=== PATIENT | female | born 1990 | race Caucasian/White ===

== ENCOUNTER 2022-08-05 04:42 | Emergency (ER) | payer BC, SELFPAY ==
--- NOTE | ~2022-08-05 | CT_ITS ---
CT of the Abdomen and Pelvis: Indication: Abdominal pain Technique: 2.5 mm axial scans were obtained through the abdomen and pelvis following intravenous adm inistration of 100 cc of Omnipaque 350. Dose reduction technique was used on this scan by utilizing a utomated exposure control and iterative reconstruction technique. The dose-length product (DLP) was 1 623.63 mGy-cm. Findings: Scans through the lung bases are unremarkable. Cholecystectomy clips are present. There is a 1.1 x 0.5 cm irregular hypodense area in the right hepa tic lobe (axial image 331), nonspecific. The spleen, pancreas, adrenals and kidneys are within normal limits. No evidence of aortic aneurysm. No lymphadenopathy. No bowel obstruction or bowel wall thickening. There is no evidence to suggest acute appendicitis. Images through the pelvis were performed. Urinary bladder unremarkable. No adnexal mass evident. No a scites. Impression: 1.1 x 0.5 cm indeterminate hypodense area in the right hepatic lobe. This could be a small irregular cyst, but demonstrates more irregular borders than is typically seen. Follow-up MR of the liver shoul d be considered to better evaluate this finding. No other significant findings. Reviewed, dictated and finalized at [facility]. Impression: 1.1 x 0.5 cm indeterminate hypodense area in the right hepatic lobe. This could be a small irregular cyst, but demonstrates more irregular borders than is typ ically seen. Follow-up MR of the liver should be considered to better evaluate this finding. No other significant findings.
[2022-08-05 04:43] VITALS: BP 140/96; PULSE 114; RESP 20; TEMP 36.4; O2SAT 98
--- NOTE | 2022-08-05 04:52 | ECG_ITS ---
Measurements Intervals [place] Rate: 115 P: 60 [place]: 130 QRS: 10 QRSD: 97 T: 65 QT: 333 QTc: 462 Interpretive Statements SINUS TACHYCARDIA ABNORMAL ECG NO PREVIOUS ECG AVAILABLE FOR COMPARISON Electronically Signed On 08-05-2022 8:00:20 CDT by Chaz Dubois D.O.
[2022-08-05 05:19] LABS: Basophils Absolute Auto 0.1 K/mm3 (0.0-0.1); Basophils Percent Auto 0.3 % (0.2-1.2); Eosinophils Absolute Auto 0.2 K/mm3 (0-0.3); Eosinophils Percent Auto 1.1 % (0-4.4); Hematocrit 48.6 % (37.0-47.0); Hemoglobin 16.7 g/dL (12.0-15.0); Immature Granulocyte Absolute 0.06 K/mm3 (0.00-0.031); Immature Granulocyte Percent A 0.4 % (0-0.5); Lymphocytes Absolute Auto 1.39 K/mm3 (0.9-3.2); Lymphocytes Percent Auto 8.8 % (18.3-44.2); Mean Corpuscular HGB Conc 34.4 g/dl (32-36); Mean Corpuscular Hemoglobin 31.9 pg (26-34); Mean Corpuscular Volume 92.9 fl (80-100); Mean Platelet Volume 9.4 fl (7.4-10.4); Monocytes Percent Auto 6.5 % (2.6-8.5); Neutrophils Absolute Auto 13.1 K/mm3 (1.3-6.7); Neutrophils Percent Auto 82.9 % (45.5-73.1); Platelet Count Result 277 k/mm3 (150-375); Red Blood Count 5.23 M/mm3 (4.2-5.4); Red Cell Distribution Width 12.9 % (11.5-14.5); White Blood Count 15.8 K/mm3 (4.5-10.0)
[2022-08-05 05:35] LABS: Alanine Aminotransferase 33 U/L (6-35); Albumin Level 4.8 g/dL (3.5-5.1); Alkaline Phosphatase 71 U/L (38-126); Anion Gap 11 mmol/L (8-16); Aspartate Amino Transferase 40 U/L (14-36); Bilirubin,Total 0.7 mg/dL (0.2-1.3); Blood Urea Nitrogen 17 mg/dL (7-17); Calcium 9.3 mg/dL (8.4-10.2); Carbon Dioxide 26 mmol/L (22-30); Chloride 102 mmol/L (98-107); Estimated CRCL calculation 139 ml/min; Estimated Glomerular Filt Rate > 60; Glucose 159 mg/dL (65-110); Lipase 58 U/L (23-300); Potassium 3.3 mmol/L (3.4-5.0); Sodium 139 mmol/L (137-145)
[2022-08-05 07:27] VITALS: BP 139/105; PULSE 118; RESP 17; O2SAT 98
--- NOTE | 2022-08-05 07:28 | ED.NAVMDI ---
HPI - Nausea/Vomiting/Diarrhea General Chief complaint: Nausea/Vomiting/Diarrhea Stated complaint: vomiting Time Seen by Provider: 08/05/22 07:22 Source: patient and family History of Present Illness HPI Narrative: 31 years old white female presents with nausea, vomiting and diarrhea that started at the midnight. Her daughter had similar symptoms a few days ago, patient reports a lot of vomiting and a lot of diarrhea, feeling dehydrated and dizzy. Currently feeling like she needed to go to have a bowel movement. She reports intermittent abdominal cramps Related Data Allergies Allergy/AdvReac Type Severity Reaction Status Date / Time No Known Allergies Allergy Verified 08/05/22 07:31 Review of Systems Review of Systems: All systems reviewed & are unremarkable except as noted in HPI and below PMFSH Family History Family History Other Family history of allergic disorder Family history of coronary artery disease Family history of malignant neoplasm Hypertension Social History Social History Alcohol intake: never Exam Narrative: General appearance: Well-developed, well-nourished Skin: Normal color Head: Normocephalic, nontraumatic Eyes: Clear conjunctiva ENT: Oropharynx normal, ears normal, nose normal Neck: Supple, nontender Chest and respiratory: Airway patent, no respiratory distress, no accessory muscle use Heart: Regular rate/rhythm Abdomen: Soft, diffuse mild tenderness, hyperactive bowel sounds Vascular: Normal peripheral pulses, normal capillary refill. Musculoskeletal: Normal range of motion, nontender back Neurologic: Alert and oriented ?3, [employer] is normal as tested, no gross motor deficit Course Reevaluation(s) Reevaluation #1: Feeling much better compared to on arrival after 2 L of IV fluid, still nauseated with vomiting Date: 08/05/22 Time: 10:04 Vital Signs Vital signs: Vital Signs Temperature 36.4 C 08/05/22 04:43 Pulse Rate 114 H 08/05/22 04:43 Respiratory Rate 20 08/05/22 04:43 Blood Pressure 140/96 H 08/05/22 04:43 Pulse Oximetry 98 08/05/22 04:43 Temperature 36.4 C 08/05/22 04:43 Pulse Rate 115 H 08/05/22 10:12 Respiratory Rate 20 08/05/22 10:12 Blood Pressure 139/56 L 08/05/22 10:12 Pulse Oximetry 99 08/05/22 10:12 MDM - Nausea/Vomiting/Diarrhea MDM Narrative Medical decision making narrative: Differential diagnosis include viral gastroenteritis, colitis, enteritis work-up today showed white count of 15 with left shift, potassium of 3.3 normal urine analysis showed insignificant abnormality. Because of the elevated white blood cell count, CT scan of the abdomen and pelvis ordered and showed 1.1 x 0.5 cm indeterminate hypodense area in the right hepatic lobe, follow-up MRI of the liver showed be considered to better evaluate this finding. A copy of the CT scan report was given to the patient prior to discharge, and I did explain in details that she need to follow-up with her family physician within 7 days to get MRI of the abdomen to rule out the possibility of malignancy. Patient understood, her mother at the bedside. Patient was able to keep fluids and crackers down prior to discharge the pt was discharged to home.the pt,s condition upon discharge was fair,education was provided to the pt in reference to the final impression,discharge study results,treatment,prognosis and need for follow up . Differential Diagnosis Differential diagnosis: Likely food poisoning, gastroenteritis, dehydration and other (Electrolyte imbalance) Lab Data 08/05/22 05:03
[2022-08-05 07:29] VITALS: BP 139/105; PULSE 117; RESP 17; O2SAT 98
[2022-08-05 07:42] LABS: Appearance Urine Clear (Clear); Bacteria Urine None Seen /hpf; Bilirubin Urine Negative (Negative); Blood Urine 1+ (Negative); Color Urine Yellow (Yellow); Glucose Urine UA Negative (Negative); Ketones Urine Trace mg/dL (Negative); Leukocyte Esterase Ur Trace LEU/UL (Negative); Nitrate Urine Negative (Negative); Non Pathogenic Casts 0-2; Protein Urine Trace mg/dL (Negative); Squamous Epithelial Cell Urine Occasional /hpf (Few); WBC Urine 0-5 /hpf; pH Urine 5.5 (5.0-9.0)
[2022-08-05 07:44] LABS: Add Urine Microscopic? YES
[2022-08-05] MEDS: ONDANSETRON INJ 4 MG/2 ML VIAL 8 MG IV PUSH (07:45)
[2022-08-05] MEDS: SODIUM CHLORIDE 0.9% IV 1,000 ML 999 ML IV CONT ×2 (07:45)
[2022-08-05 09:00] VITALS: BP 114/78; PULSE 112; RESP 24; O2SAT 100
--- NOTE | 2022-08-05 09:42 | PC.NURSE ---
c/o increasing nausea and abd pain since arrival.
[2022-08-05] MEDS: METOCLOPRAMIDE HCL INJ 10 MG/2 ML VIAL IV PUSH (09:56)
[2022-08-05] MEDS: diphenhydrAMINE HCl INJ 50 MG/ML VIAL IV PUSH (09:56)
[2022-08-05 10:12] VITALS: BP 139/56; PULSE 115; RESP 20; O2SAT 99
[2022-08-05] MEDS: KETOROLAC 30 MG/ML VIAL (*BKC) IV PUSH (10:13)
--- NOTE | 2022-08-05 11:30 | PC.NURSE ---
No further nausea or pain. Resting comfortably.
[2022-08-05 12:15] VITALS: BP 116/79
== END 2022-08-05 12:17 | disposition home or self-care (01) ==
PROVIDERS: Emergency Medicine; Emergency Provider Emergency Medicine; PCP Nurse Practitioner Family
DX: K52.9 Noninfective gastroenteritis and colitis, unspecified (principal); R16.0 Hepatomegaly, not elsewhere classified; R00.0 Tachycardia, unspecified
CPT/HCPCS: 36415; 74177; 80053; 81001; 81025; 83690; 85025; 93005; 96361; 96374; 96375; 99284; J1200; J1885; J2405; J2765; J7030; Q9967